=== PATIENT | female | born 1955 | race African-American/Black ===

== ENCOUNTER 2016-05-27 12:38 | Emergency (ER) | payer SELFPAY ==
[~2016-05-27] VITALS: Ht 157.5 cm; Wt 60.0 kg
[~2016-05-27 12:38] MED LIST: CIPR500T4 PO; IBUP600T26 PO
[2016-05-27 12:40] VITALS: BP 202/120; PULSE 100; RESP 20; TEMP 98; O2SAT 97
[2016-05-27 12:59] VITALS: BP 174/110; PULSE 85; RESP 16; TEMP 98.4; O2SAT 98
[2016-05-27 13:02] VITALS: BP 174/110; PULSE 90; RESP 16; O2SAT 98
[2016-05-27] MEDS ORDERED: SODIUM CHLORIDE 0.9% FLUSH 5 ML FLUSH IVF PRN (13:15)
[2016-05-27] MEDS ORDERED: SODIUM CHLORID 0.9% 500 ML INJ 500 ML IV ONE (13:15)
[2016-05-27] MEDS ORDERED: ASPIRIN 81 MG CHEW TAB PO ONE (13:15)
--- NOTE | 2016-05-27 13:35 | PD ---
HPI Chief Complaint: Chest Pain Time Seen by Provider: 12:56 Travel History International Travel<30 days: No Contact w/Intl Traveler<30days: No Traveled to known affect area: No History of Present Illness HPI This 60-year-old woman who presents to the emergency department complaining of chest and shoulder pain. She states that starting this morning started getting pain in her left chest, worse with deep breathing, mostly in the left shoulder. It does radiate to the right shoulder as well at times. She's had intermittent mild symptoms for the past week or so. No history of previous similar symptoms. Symptoms don't seem to be brought on by exertion, not associated with eating. She otherwise has been feeling generally well she is a history of DVT in the remote past associated with oral contraceptive use, no problems since then. No other complaints. History Past Medical History Medical History: Denies Significant Hx Influenza Vaccination: No PNEUMOCCOCAL Vaccine (Year): 2 Menopausal: Yes : 6 Social History Alcohol Use: Yes (OCCAS) Tobacco Use: No Allergies-Medications (Allergen,Severity, Reaction): Coded Allergies: Morphine (Verified Allergy, Severe, SWELLING, 05/27/16) Reported Meds & Prescriptions Reported Meds & Active Scripts Active No Active Prescriptions or Reported Medications Review of Systems Except as stated in HPI: all other systems reviewed are Neg Physical Exam Narrative GENERAL: Well-appearing 60-year-old woman, no acute distress. SKIN: Warm and dry. HEAD: Atraumatic. Normocephalic. CARDIOVASCULAR: Regular rate and rhythm. No murmur appreciated. RESPIRATORY: No accessory muscle use. Clear to auscultation. Breath sounds equal bilaterally. GASTROINTESTINAL: Abdomen soft, non-tender, nondistended. Hepatic and splenic margins not palpable. MUSCULOSKELETAL: No obvious deformities. No edema. NEUROLOGICAL: Awake and alert. No obvious cranial nerve deficits. Motor grossly within normal limits. Normal speech. PSYCHIATRIC: Appropriate mood and affect; insight and judgment normal. Data Data Last Documented VS Vital Signs Date Time Temp Pulse Resp B/P Pulse Ox O2 Delivery O2 Flow Rate FiO2 05/27/16 13:02 90 16 174/110 98 Room Air 05/27/16 12:59 98.4 Orders Electrocardiogram (05/27/16 ) B-Type Natriuretic Peptide (05/27/16 13:14) Complete Blood Count With Diff (05/27/16 13:14) Comprehensive Metabolic Panel (05/27/16 13:14) Magnesium (Mg) (05/27/16 13:14) Prothrombin Time / Inr (Pt) (05/27/16 13:14) Act Partial Throm Time (Ptt) (05/27/16 13:14) Troponin I (05/27/16 13:14) Lipase (05/27/16 13:14) Ecg Monitoring (05/27/16 13:14) Iv Access Insert/Monitor (05/27/16 13:14) Oximetry (05/27/16 13:14) Oxygen Administration (05/27/16 13:14) Aspirin Chew (Aspirin Chew) (05/27/16 13:15) Sodium Chloride 0.9% Flush (Ns Flush) (05/27/16 13:15) Sodium Chlorid 0.9% 500 Ml Inj (Ns 500 M (05/27/16 13:15) Chest, Pa & Lat (05/27/16 13:14) Labs Laboratory Tests Test 05/27/16 05/27/16 13:25 14:05 Sodium Level 140 MEQ/L Potassium Level 3.8 MEQ/L Chloride Level 106 MEQ/L Carbon Dioxide Level 26.0 MEQ/L Anion Gap 8 MEQ/L Blood Urea Nitrogen 10 MG/DL Creatinine 0.57 MG/DL Estimat Glomerular Filtration 131 ML/MIN Rate Random Glucose 92 MG/DL Calcium Level 10.1 MG/DL Magnesium Level 2.0 MG/DL Total Bilirubin 0.3 MG/DL Aspartate Amino Transf 19 U/L (AST/SGOT) Alanine Aminotransferase 24 U/L (ALT/SGPT) Alkaline Phosphatase 61 U/L Troponin I LESS THAN 0.02 NG/ML B-Type Natriuretic Peptide LESS THAN 2 PG/ML Total Protein 8.9 GM/DL Albumin 4.0 GM/DL Lipase 250 U/L White Blood Count 5.4 TH/MM3 Red Blood Count 3.91 MIL/MM3 Hemoglobin 12.6 GM/DL Hematocrit 35.3 % Mean Corpuscular Volume 90.3 FL Mean Corpuscular Hemoglobin 32.4 PG Mean Corpuscular Hemoglobin 35.9 % Concent Red Cell Distribution Width 12.5 % Platelet Count 230 TH/MM3 Mean Platelet Volume 7.1 FL Neutrophils (%) (Auto) 38.1 % Lymphocytes (%) (Auto) 50.8 % Monocytes (%) (Auto) 9.0 % Eosinophils (%) (Auto) 1.8 % Basophils (%) (Auto) 0.3 % Neutrophils # (Auto) 2.1 TH/MM3 Lymphocytes # (Auto) 2.7 TH/MM3 Monocytes # (Auto) 0.5 TH/MM3 Eosinophils # (Auto) 0.1 TH/MM3 Basophils # (Auto) 0.0 TH/MM3 CBC Comment DIFF FINAL Differential Comment MDM Medical Decision Making Medical Screen Exam Complete: Yes Emergency Medical Condition: Yes Interpretation(s) My review of EKG: Normal sinus rhythm, normal axis, no definite evidence of acute ischemia. LABS: CBC unremarkable. CMP is unremarkable. Troponin negative. BNP negative Lipase is normal Coags: Chest x-ray: negative Differential Diagnosis Chest wall pain, ACS, hepatobiliary disease, pneumothorax, dissection, other Narrative Course medical decision making INITIAL: This is a 60-year-old woman who presents to the emergency department with chest and left shoulder pain and tightness, intermittent, worsening over the past week, not clearly exertional. Looks otherwise well. We'll check labs. Remote history of DVT, I don't think this is a venous thromboembolism. Reassess. FINAL: Initial workups unremarkable. Very unusual story of intermittent stuttering symptoms, but not exertional at all. I don't think is consistent with PE or dissection. Symptoms are more from the shoulder to the arm on the left. Possibly some radiculopathy. Strength and reflexes are equal on both upper extremities. She has also elevated blood pressure but don't think that's related, and again I don't think she has dissection. She is good symmetric pulses in all 4 extremities. This point recommended trial blood pressure medicine, anti-inflammatory medicines, and outpatient follow-up. Diagnosis Primary Impression: Left arm pain Additional Impression: HTN (hypertension) Qualified Code: I10 - Essential hypertension Patient Instructions: General Instructions Additional Instructions: Take blood pressure medication as prescribed. Use Naprosyn as needed for arm pain. Follow-up with a primary physician in the next one to 2 weeks for repeat blood pressure evaluation, and for further evaluation. Return to the emergency department for any worsening chest pain, any numbness tingling or weakness, or any other new or worsening symptoms. Med/Other Pt SpecificInfo: Prescription(s) given Scripts Amlodipine 5 Mg Tab5 Mg PO DAILY #30 TAB Ref 0 Prov:Lc Chauhan MD 05/27/16 Naproxen (Naprosyn)250 Mg [id number] Mg PO BID #14 TAB Prov:Lc Chauhan MD 05/27/16 Disposition: 01 DISCHARGE HOME Condition: Stable Lc Chauhan MD May 27, 2016 13:35
--- NOTE | 2016-05-27 14:01 | RADRPT ---
EXAM DATE/TIME: 05/27/2016 13:41 [facility] COMPARISON: No previous studies available for comparison. INDICATIONS : Patient complains of chest pain and shortness of breath. MEDICAL HISTORY : None. SURGICAL HISTORY : None. ENCOUNTER: Initial ACUITY: 1 week PAIN SCORE: 8/10 LOCATION: chest FINDINGS: PA and lateral views of the chest demonstrate the lungs to be symmetrically aerated without evidence of mass, infiltrate or effusion. The cardiomediastinal contours are unremarkable. Osseous structure s are intact. CONCLUSION: No acute disease. Angel Johns MD FACR on May 27, 2016 at 13:59 Board Certified Radiologist. This report was verified electronically.
[2016-05-27 14:04] LABS: ALKALINE PHOSPHATASE 61 U/L (45-117); TOTAL BILIRUBIN ADULT 0.3 MG/DL (0.2-1.0)
[2016-05-27 14:09] LABS: ALT (GPT) 24 U/L (10-53); ANION GAP 8 MEQ/L (5-15); AST (GOT) 19 U/L (15-37); BLOOD UREA NITROGEN 10 MG/DL (7-18); CHLORIDE 106 MEQ/L (98-107); GLOMERULAR FILTRATION RATE 131 ML/MIN (>89); SODIUM (NA) 140 MEQ/L (136-145)
[2016-05-27 14:11] LABS: POTASSIUM 3.8 MEQ/L (3.5-5.1)
[2016-05-27 14:22] LABS: AUTOMATED NEUTROPHIL # 2.1 TH/MM3 (1.8-7.7); BASOPHIL % 0.3 % (0.0-2.0); EOSINOPHIL # 0.1 TH/MM3 (0-0.4); EOSINOPHIL % 1.8 % (0.0-4.0); HEMATOCRIT 35.3 % (35.0-46.0); HEMO FLAGS DIFF FINAL; LYMPH % 50.8 % (9.0-44.0); LYMPHOCYTE # 2.7 TH/MM3 (1.0-4.8); MEAN CELL VOLUME 90.3 FL (80.0-100.0); MEAN CORPUSCULAR HEMOGLOBIN 32.4 PG (27.0-34.0); MEAN CORPUSCULAR HGB CONC 35.9 % (32.0-36.0); NEUT % 38.1 % (16.0-70.0); PLATELET COUNT 230 TH/MM3 (150-450); RED BLOOD COUNT 3.91 MIL/MM3 (4.00-5.30); RED CELL DISTRIBUTION WIDTH 12.5 % (11.6-17.2); WHITE BLOOD COUNT 5.4 TH/MM3 (4.0-11.0)
[2016-05-27 14:29] LABS: APTT (PATIENT) 27.5 SEC (24.3-30.1); PROTHROMBIN TIME - PATIENT 11.4 SEC (9.8-11.6)
[2016-05-27] MEDS ORDERED: AMLO5TAB2 PO (14:37)
[2016-05-27] MEDS ORDERED: NAPR250T57 PO (14:37)
[2016-05-27 14:52] VITALS: BP 183/103; PULSE 90; RESP 16; O2SAT 96
--- NOTE | 2016-05-27 19:48 | EKG ---
Date Performed: 05/27/2016 Time Performed: 12:56:18 PTAGE: 60 years EKG: Sinus rhythm MODERATE T-WAVE ABNORMALITY, CONSIDER ANTERIOR ISCHEMIA ABNORMAL ECG PREVIOUS TRACING : 10/08/2011 10.01 Compared to the previous tracing, minimal T wave changes an teriorly DOCTOR: Jim Arias Interpretating Date/Time 05/27/2016 19:46:39
[2016-07-24] MEDS ORDERED: AMLO5TAB2 PO (15:52)
[2016-07-24] MEDS ORDERED: RANI150T PO (15:56)
== END 2016-05-27 15:09 | disposition home or self-care (01) ==
LOC: NEPC 12:38
DX: M79.602 Pain in left arm (principal); I10 Essential (primary) hypertension; R94.31 Abnormal electrocardiogram [ECG] [EKG]; Z86.718 Personal history of other venous thrombosis and embolism
CPT/HCPCS: 71020; 80053; 83690; 83735; 83880; 84484; 85025; 85610; 85730; 93005; 99285; J7040

== ENCOUNTER 2016-07-12 10:36 | Observation (INO) | payer SELFPAY ==
[~2016-07-12] VITALS: Ht 157.5 cm; Wt 60.5 kg
[2016-07-12] VITALS (9 sets, daily range): BP systolic 119–187; BP diastolic 77–107; PULSE 72–108; RESP 16–20; TEMP 97.4–98.3; O2SAT 96–98
[~2016-07-12 10:36] MED LIST changes: +AMLO5TAB2 PO; -CIPR500T4 PO; -IBUP600T26 PO; +NAPR250T57 PO
--- NOTE | 2016-07-12 11:16 | RADRPT ---
EXAM DATE/TIME: 07/12/2016 10:42 [facility] COMPARISON: No previous studies available for comparison. INDICATIONS : Chest pain on left side. MEDICAL HISTORY : None. SURGICAL HISTORY : None. ENCOUNTER: Initial ACUITY: 4 - 6 days PAIN SCORE: 9/10 LOCATION: Bilateral chest FINDINGS: A single view of the chest demonstrates the lungs to be symmetrically aerated without evidence of mas s, infiltrate or effusion. The cardiomediastinal contours are unremarkable. Osseous structures are intact. CONCLUSION: No acute disease. Angel Johns MD FACR on July 12, 2016 at 11:15 Board Certified Radiologist. This report was verified electronically.
[2016-07-12 11:17] LABS: BASOPHIL % 0.3 % (0.0-2.0); EOSINOPHIL # 0.1 TH/MM3 (0-0.4); EOSINOPHIL % 1.5 % (0.0-4.0); HEMATOCRIT 36.7 % (35.0-46.0); HEMO FLAGS DIFF FINAL; LYMPH % 53.2 % (9.0-44.0); LYMPHOCYTE # 2.9 TH/MM3 (1.0-4.8); MEAN CELL VOLUME 91.5 FL (80.0-100.0); MEAN CORPUSCULAR HEMOGLOBIN 31.6 PG (27.0-34.0); MEAN CORPUSCULAR HGB CONC 34.5 % (32.0-36.0); MONO % 7.2 % (0.0-8.0); NEUT % 37.8 % (16.0-70.0); PLATELET COUNT 235 TH/MM3 (150-450); RED BLOOD COUNT 4.01 MIL/MM3 (4.00-5.30); RED CELL DISTRIBUTION WIDTH 12.6 % (11.6-17.2); WHITE BLOOD COUNT 5.4 TH/MM3 (4.0-11.0)
[2016-07-12] MEDS ORDERED: ASPIRIN 325 MG TAB PO ONE (11:30)
[2016-07-12] MEDS: NITROGLYCERIN 0.4 MG SL 25 TABS/BTL SL SCH ×3 (11:30→11:40)
--- NOTE | 2016-07-12 11:30 | PD ---
HPI Chief Complaint: Chest Pain Time Seen by Provider: 11:30 Travel History International Travel<30 days: No Contact w/Intl Traveler<30days: No Traveled to known affect area: No History of Present Illness HPI 60-year-old female presents to the emergency department for evaluation of left- sided chest pain radiating down her left arm for 3 days. States that for the past 2 days the pain has been intermittent lasting for a few minutes. States that since this morning the pain has been constant. Denies any aggravating or alleviating factors. States that today she is having shortness of breath, nausea with 2 episodes of nonbloody emesis, and lightheadedness with diaphoresis associated with this chest pain. She also states that she is having pain in her upper and lower back. Denies any injury or trauma, has not done anything out of the ordinary recently, no heavy lifting. She denies any prior history of heart disease or VT. States that she has hypertension and high cholesterol, was recently placed on blood pressure medication but does not take anything for her cholesterol. She does not follow up as an outpatient with her PCP. She states that she has a remote history of DVT and PE in the past that was secondary to oral contraceptives, she is no longer taking any hormones. Denies smoking history. States she has a strong family history of cardiac disease with her mother and father both having heart attacks. No other complaints. PFSH Past Medical History Heart Rhythm Problems: No Cardiac Catheterization: No Cardiovascular Problems: Yes High Cholesterol: No Congestive Heart Failure: No Diabetes: No Diminished Hearing: No Deep Vein Thrombosis: Yes Hypertension: No Inguinal Hernia: Yes Respiratory: Yes (PE) Immunizations Current: Yes Myocardial Infarction: No Tetanus Vaccination: < 5 Years Influenza Vaccination: No PNEUMOCCOCAL Vaccine (Year): 2 Menopausal: Yes : 6 Past Surgical History Abdominal Surgery: Yes (RIGHT INGUINAL HERNIA X 4) Appendectomy: Yes Coronary Artery Bypass Graft: No Hysterectomy: Yes Social History Alcohol Use: Yes (OCCAS) Tobacco Use: No Substance Use: No Allergies-Medications (Allergen,Severity, Reaction): Coded Allergies: Morphine (Verified Allergy, Severe, SWELLING, 07/12/16) Reported Meds & Prescriptions Reported Meds & Active Scripts Active Amlodipine (Amlodipine Besylate) 5 Mg Tab 5 Mg PO DAILY Review of Systems Except as stated in HPI: all other systems reviewed are Neg Physical Exam Narrative GENERAL: Well-nourished and well-developed pleasant female patient in no acute distress. SKIN: Warm and dry. HEAD: Normocephalic and atraumatic. EYES: No injection, drainage, or hyphema noted. PERRLA. EOMI. ENT: No nasal drainage noted. Oropharynx is clear. NECK: Supple and the trachea is midline. CARDIOVASCULAR: Regular rate and rhythm. RESPIRATORY: Breath sounds are equal bilaterally with no accessory muscle use, wheezing, rhonchi, or crackles. GASTROINTESTINAL: Abdomen is soft, non-tender, and nondistended. MUSCULOSKELETAL: No obvious deformities, swelling, cyanosis, or ecchymosis is present throughout the upper and lower extremities. Patient has full range of motion without any signs of neurovascular compromise. BACK: Nontender without any obvious deformities, bony point tenderness, or crepitus noted throughout the thoracic and lumbar vertebrae. NEUROLOGICAL: Awake, alert, and oriented. Normal speech and gait. Cranial nerves are grossly intact. Data Data Last Documented VS Vital Signs Date Time Temp Pulse Resp B/P Pulse Ox O2 Delivery O2 Flow Rate FiO2 07/12/16 12:31 82 18 146/88 98 Room Air 07/12/16 10:39 98.2 Orders Electrocardiogram (07/12/16 10:41) Complete Blood Count With Diff (07/12/16 10:41) Basic Metabolic Panel (Bmp) (07/12/16 10:41) Ckmb (Isoenzyme) Profile (07/12/16 10:41) Troponin I (07/12/16 10:41) Chest, Single Ap (07/12/16 10:41) Iv Access Insert/Monitor (07/12/16 10:41) Ecg Monitoring (07/12/16 10:41) Oxygen Administration (07/12/16 10:41) Oximetry (07/12/16 10:41) D-Dimer (07/12/16 11:29) Prothrombin Time / Inr (Pt) (07/12/16 11:29) Act Partial Throm Time (Ptt) (07/12/16 11:29) Aspirin (Aspirin) (07/12/16 11:30) Nitroglycerin Sl (Nitrostat Sl) (07/12/16 11:30) Acetaminophen (Tylenol) (07/12/16 13:30) Admit Order (Ed Use Only) (07/12/16 13:23) Labs Laboratory Tests Test 07/12/16 07/12/16 10:55 12:20 White Blood Count 5.4 TH/MM3 Red Blood Count 4.01 MIL/MM3 Hemoglobin 12.7 GM/DL Hematocrit 36.7 % Mean Corpuscular Volume 91.5 FL Mean Corpuscular Hemoglobin 31.6 PG Mean Corpuscular Hemoglobin 34.5 % Concent Red Cell Distribution Width 12.6 % Platelet Count 235 TH/MM3 Mean Platelet Volume 7.1 FL Neutrophils (%) (Auto) 37.8 % Lymphocytes (%) (Auto) 53.2 % Monocytes (%) (Auto) 7.2 % Eosinophils (%) (Auto) 1.5 % Basophils (%) (Auto) 0.3 % Neutrophils # (Auto) 2.0 TH/MM3 Lymphocytes # (Auto) 2.9 TH/MM3 Monocytes # (Auto) 0.4 TH/MM3 Eosinophils # (Auto) 0.1 TH/MM3 Basophils # (Auto) 0.0 TH/MM3 CBC Comment DIFF FINAL Differential Comment Sodium Level 137 MEQ/L Potassium Level 3.9 MEQ/L Chloride Level 104 MEQ/L Carbon Dioxide Level 26.5 MEQ/L Anion Gap 7 MEQ/L Blood Urea Nitrogen 12 MG/DL Creatinine 0.70 MG/DL Estimat Glomerular Filtration 103 ML/MIN Rate Random Glucose 101 MG/DL Calcium Level 9.7 MG/DL Total Creatine Kinase 82 U/L Troponin I LESS THAN 0.02 NG/ML Prothrombin Time 10.1 SEC Prothromb Time International 0.9 RATIO Ratio Activated Partial 23.4 SEC Thromboplast Time D-Dimer Quantitative (PE/DVT) 0.21 MG/L [facility] Medical Decision Making Medical Screen Exam Complete: Yes Emergency Medical Condition: Yes Differential Diagnosis ACS versus PE versus pleurisy versus angina versus radiculopathy versus musculoskeletal pain Narrative Course 60-year-old female presents to the emergency department for evaluation of left- sided chest pain radiating to her left arm with upper and lower back pain as well. Patient is afebrile. She is initially tachycardic with a heart rate of 108 bpm and is initially hypertensive at 187/107. Her blood pressure has not come down 147/94. Otherwise vital signs are stable. Physical examination is essentially unremarkable. IV access is obtained, labs have been drawn and sent. Patient is administered nitroglycerin sublingually and aspirin. EKG shows sinus rhythm with no acute ST elevations or depressions. Chest x-ray is negative for any acute abnormalities. CBC is unremarkable. BMP is unremarkable. Troponin is less than 0.02. Coags are unremarkable. D-dimer is negative. Patient states that the nitroglycerin did not help her chest pain. She'll be admitted to chest pain center for repeat cardiac enzymes, EKGs and possible stress testing. Patient is agreeable with this plan. I discussed the case with my attending physician Dr. Chauhan who is aware of the patients history, physical examination findings, and treatment plan. Diagnosis Primary Impression: Chest pain radiating to arm Admitting Information Admitting Physician Requests: Observation Samantha Nuno Jul 12, 2016 11:30
[2016-07-12 11:44] LABS: ANION GAP 7 MEQ/L (5-15); BICARBONATE 26.5 MEQ/L (21.0-32.0); BLOOD UREA NITROGEN 12 MG/DL (7-18); CHLORIDE 104 MEQ/L (98-107); GLOMERULAR FILTRATION RATE 103 ML/MIN (>89); SODIUM (NA) 137 MEQ/L (136-145)
[2016-07-12 11:47] LABS: CREATINE KINASE 82 U/L (26-192); POTASSIUM 3.9 MEQ/L (3.5-5.1)
[2016-07-12 13:03] LABS: APTT (PATIENT) 23.4 SEC (24.3-30.1); INTERNATIONAL NORMALIZED RATIO 0.9 RATIO; PROTHROMBIN TIME - PATIENT 10.1 SEC (9.8-11.6)
[2016-07-12] MEDS ORDERED: ACETAMINOPHEN 500 MG CPLT PO PRN (13:30)
[2016-07-12] MEDS ORDERED: SODIUM CHLORIDE 0.9% FLUSH 5 ML FLUSH IVF PRN (13:30)
[2016-07-12] MEDS ORDERED: ONDANSETRON HCL 4 MG/2 ML VIAL IV PRN (13:30)
[2016-07-12] MEDS ORDERED: ALPRAZolam 0.25 MG TAB PO PRN (13:30)
[2016-07-12] MEDS ORDERED: ACETAMINOPHEN 500 MG CPLT PO ONE (13:30)
[2016-07-12] MEDS ORDERED: amLODIPine BESYLATE 5 MG TAB PO ONE (13:30)
--- NOTE | 2016-07-12 14:27 | HHI.HP ---
HPI Primary Care Physician No Primary Care Physician Chief Complaint Chest pain History of Present Illness This is a 60-year-old female that presents to the ED via private vehicle complaining of a left-sided chest pain that radiates down her left arm. This is bothering her for about a month. She seen for summing similar about a month ago and was told that it was a nerve pain. She states over last 3 days it is a become worse. Is coming more frequent. They last anywhere from a few seconds about 5 minutes. She describes as an ache. The most intense levels been a 9 out of 10. She's had times been short of breath and also diaphoretic a couple times. She was nauseous this morning with 2 episodes of nonbloody emesis. She believes she had a stress test several years ago. Upon review records she had a nonischemic Josiah protocol ETT in 2009. She denies recent illnesses. Denies fevers or chills. She states that last month she was diagnosed with hypertension was placed on amlodipine. She states that has been working. She took or masses morning but vomited soon afterwards. She does not have a local physician at this time. Review of Systems General: Patient denies fevers, chills recent, and recent travel HEENT: Patient denies headache, sore throat, difficulty swallowing. Cardiovascular: Has the chest discomfort as mentioned above. She was diaphoretic a couple times. Denies sensation of heart beating rapidly or irregularly. No syncope. Respiratory: Patient has been short of breath. Denies inspirational chest discomfort. Denies coughing wheezing or hemoptysis. GI: She was nauseous this morning and had tube episodes of nonbloody emesis. Patient denies diarrhea, abdominal pain, bloody stools. Musculoskeletal: Patient denies joint pain or edema. Denies calf pain or edema. Neurovascular: Patient denies numbness, tingling, weakness in extremities. Denies headache. Endocrine: Denies polyuria and polydipsia. Hematologic: Denies easy bruising. Skin: Denies rash or itching. Past Family Social History Allergies: Coded Allergies: Morphine (Verified Allergy, Severe, SWELLING, 07/12/16) Past Medical History Hypertension diagnosed recently. History of hyperlipidemia but states she has never taken medication for this. She had a DVT and a PE about 30 years ago which was related to oral contraceptive use. She states that she took Coumadin for 2 years. Denies known CAD and diabetes. Past Surgical History Right inguinal hernia repair, appendectomy, and hysterectomy. Reported Medications Reported Meds & Active Scripts Active Amlodipine (Amlodipine Besylate) 5 Mg Tab 5 Mg PO DAILY Active Ordered Medications Current Medications Medications (Trade) Dose Ordered Sig/Rm Route Start Time Stop Time Status Last Admin (NS Flush) 2 ml UNSCH PRN IVF 07/12/16 13:30 (NS Flush) 2 ml BID IVF 07/12/16 21:00 (Tylenol) 500 mg Q4H PRN PO 07/12/16 13:30 (Zofran Inj) 4 mg Q6H PRN IV 07/12/16 13:30 (Aspirin) 325 mg DAILY PO 07/13/16 09:00 (Xanax) 0.25 mg Q8H PRN PO 07/12/16 13:30 Family History Her father had an AZ at age 65. Her mother had her first AZ in her 60s. Social History Patient is a lifetime nonsmoker. She has on average 3-4 drinks twice a week. She denies illicit drugs. Physical Exam Vital Signs Vital Signs Date Time Temp Pulse Resp B/P Pulse Ox O2 Delivery O2 Flow Rate FiO2 07/12/16 14:05 97 21 07/12/16 12:31 82 18 146/88 98 Room Air 07/12/16 11:13 91 16 147/94 98 07/12/16 11:13 98 Room Air 07/12/16 11:13 98 07/12/16 10:39 98.2 108 18 187/107 97 Room Air Physical Exam GENERAL: This is a well-nourished, well-developed patient, in no apparent distress. Patient speaks in clear complete sentences. Patient is pleasant. HEENT: Head is atraumatic and normocephalic. Neck is supple without lymphadenopathy and trachea is midline. No JVD or carotid bruits. CARDIOVASCULAR: Grade 2 systolic murmur left sternal border. Regular rate and rhythm without gallops or rubs. RESPIRATORY: Clear to auscultation. Breath sounds equal bilaterally. No wheezes , rales, or rhonchi. Left chest wall is tender.. No use of accessory muscles. GASTROINTESTINAL: Abdomen is nontender, nondistended. Abdomen soft. No obvious pulsatile mass or bruit. No CVA tenderness. Strong femoral pulses bilaterally. Normal bowel sounds in all quadrants. MUSCULOSKELETAL: Patient is moving upper and lower extremities freely. No calf tenderness or edema, no Homans sign. Strong pulses in upper and lower extremities. NEUROLOGICAL: Patient is alert and oriented. Cranial nerves 2-12 are grossly intact. No focal deficits and speech is clear. SKIN: No rash and turgor is normal. Laboratory Laboratory Tests Test 07/12/16 07/12/16 10:55 12:20 White Blood Count 5.4 Red Blood Count 4.01 Hemoglobin 12.7 Hematocrit 36.7 Mean Corpuscular Volume 91.5 Mean Corpuscular Hemoglobin 31.6 Mean Corpuscular Hemoglobin 34.5 Concent Red Cell Distribution Width 12.6 Platelet Count 235 Mean Platelet Volume 7.1 Neutrophils (%) (Auto) 37.8 Lymphocytes (%) (Auto) 53.2 Monocytes (%) (Auto) 7.2 Eosinophils (%) (Auto) 1.5 Basophils (%) (Auto) 0.3 Neutrophils # (Auto) 2.0 Lymphocytes # (Auto) 2.9 Monocytes # (Auto) 0.4 Eosinophils # (Auto) 0.1 Basophils # (Auto) 0.0 CBC Comment DIFF FINAL Differential Comment Sodium Level 137 Potassium Level 3.9 Chloride Level 104 Carbon Dioxide Level 26.5 Anion Gap 7 Blood Urea Nitrogen 12 Creatinine 0.70 Estimat Glomerular Filtration 103 Rate Random Glucose 101 Calcium Level 9.7 Total Creatine Kinase 82 Troponin I LESS THAN 0.02 Prothrombin Time 10.1 Prothromb Time International 0.9 Ratio Activated Partial 23.4 Thromboplast Time D-Dimer Quantitative (PE/DVT) 0.21 Result Diagram: 07/12/16 1055 07/12/16 1055 Imaging Last 24 hours Impressions Chest X-Ray 07/12/16 1041 Signed Impressions: Service Date/Time: Tuesday, July 12, 2016 10:42 - CONCLUSION: No acute disease. Angel Johns MD FACR Course Initial EKG has sinus rhythm without significant ST segment depressions or elevations. There are inverted T waves in V1 and V2. Assessment and Plan Assessment and Plan * Chest pain: Patient will continue to have serial cardiac enzymes and EKGs for ruling out purposes. She will be seen by Dr. Harish Mercado of cardiology in the chest pain center. She likely will proceed with a stress test in the morning if she rules out. She will likely be discharged home if the stress test were to be nonischemic. * Hypertension: She will resume her Norvasc. We'll give her dose now she believes she had episodes of emesis almost immediately after taking the Norvasc this morning. * Hyperlipidemia: Patient states she's never taken medication for this. She'll need follow local physician for this. Patient is stable this time. We are trying to get the patient established with patient assistance so that she may follow-up with Dr. Ace at the [facility]. Joel Shankar Jul 12, 2016 14:27
[2016-07-12 15:53] LABS: CREATINE KINASE 72 U/L (26-192)
[2016-07-12 17:31] LABS: CREATINE KINASE 59 U/L (26-192)
[2016-07-12] MEDS: SODIUM CHLORIDE 0.9% FLUSH 5 ML FLUSH IVF SCH (20:04)
--- NOTE | 2016-07-12 21:42 | EKG ---
Date Performed: 07/12/2016 Time Performed: 10:46:29 PTAGE: 60 years EKG: Sinus rhythm POSSIBLE LEFT ATRIAL ENLARGEMENT NONSPECIFIC T-WAVE ABNORMALITY BORDERLINE ECG PREVIOUS TRACING : 05/27/2016 12.56 Compared to prior tracing no significant change DOCTOR: Melodie Ramos Interpretating Date/Time 07/12/2016 21:40:27
--- NOTE | 2016-07-12 22:59 | EKG ---
Date Performed: 07/12/2016 Time Performed: 15:13:31 PTAGE: 60 years EKG: Sinus rhythm NONSPECIFIC T-WAVE ABNORMALITY BORDERLINE ECG PREVIOUS TRACING : 07/12/2016 10.46 Compared to prior tracing no significant change DOCTOR: Jim Arias Interpretating Date/Time 07/12/2016 22:57:32
[2016-07-13 00:06] VITALS: PULSE 73
[2016-07-13 04:00] VITALS: PULSE 83
[2016-07-13 04:05] VITALS: BP 135/83; PULSE 74; RESP 20; TEMP 98; O2SAT 98
[2016-07-13 07:51] VITALS: PULSE 88
[2016-07-13 08:00] VITALS: BP 135/78; PULSE 80; RESP 20; TEMP 96.8; O2SAT 97
[2016-07-13] MEDS ORDERED: amLODIPine BESYLATE 5 MG TAB PO SCH (09:00)
[2016-07-13] MEDS ORDERED: ASPIRIN 325 MG TAB PO SCH (09:00)
[2016-07-13 09:32] VITALS: O2SAT 97
[2016-07-13] MEDS ORDERED: REGADENOSON INJ 0.4 MG/5 ML SYR ONE (09:46)
[2016-07-13] MEDS: SODIUM CHLORIDE 0.9% FLUSH 5 ML FLUSH IVF SCH (11:05)
--- NOTE | 2016-07-13 11:14 | RADRPT ---
EXAM DATE/TIME: 07/13/2016 09:08 [place] COMPARISON: No previous studies available for comparison. INDICATIONS : Left chest pain radiating to left arm with dyspnea, dizziness, diaphoresis, nausea and vomiting. Sugar na. DOSE: 25.7 mCi Tc99m Myoview at stress. 8.1 mCi Tc99m Myoview at rest. 0.4 mg Lexiscan STRESS SYMPTOMS: Shortness of breath midsternal chest pain. EJECTION FRACTION: > 70% MEDICAL HISTORY : Hypertension. Hernia, inguinal. SURGICAL HISTORY : Appendectomy. Hysterectomy. ENCOUNTER: Initial ACUITY: 3 days PAIN SCALE: 7/10 LOCATION: Left chest TECHNIQUE: The patient underwent pharmacologic stress with infusion of prescribed dose. Continuous ECG tracing was monitored during stress. Gated SPECT imaging was performed after stress and conventional SPECT i maging was performed at rest. The examination was performed on a SPECT/CT scanner, both attenuation and non-corrected datasets were reviewed. FINDINGS: DISTRIBUTION: The maximum perfused segment at stress is in the lateral wall. PERFUSION STUDY: The pattern of perfusion at stress is within normal limits with regional variations less than 30%. N o evidence of redistribution. The summed stress score is 5. There is some diaphragmatic attenuation affecting the inferior azul on the non-attenuation corrected data set.. GATED STUDY: There is intact wall motion and thickening without hypokinetic or dyskinetic segments. CONCLUSION: 1. No evidence of stress-induced ischemia. 2. Intact wall motion with greater than 70% ejection fraction. RISK CATEGORY: Low (<1% Annual Mortality Rate) Mariano Fine MD on July 13, 2016 at 11:09 Board Certified Radiologist. This report was verified electronically.
--- NOTE | 2016-07-13 11:19 | HHI.DCPOC ---
Discharge Care Plan Diagnosis: (1) Chest pain (2) Hypertension Goals to Promote Your Health * To prevent worsening of your condition and complications * To maintain your health at the optimal level Directions to Meet Your Goals Take your medications as prescribed Follow your dietary instruction Follow activity as directed Keep your appointments as scheduled Take your immunizations and boosters as scheduled If your symptoms worsen call your PCP, if no PCP go to Urgent Care Center or Emergency Room Smoking is Dangerous to Your Health. Avoid second hand smoke Call the 24-hour hour crisis hotline for domestic abuse at Joel Shankar Jul 13, 2016 11:19
--- NOTE | 2016-07-13 19:37 | EKG ---
Date Performed: 07/12/2016 Time Performed: 17:01:46 PTAGE: 60 years EKG: ECTOPIC ATRIAL RHYTHM POSSIBLE LEFT ATRIAL ENLARGEMENT BORDERLINE LEFT AXIS DEVIATION MODER ATE T-WAVE ABNORMALITY, CONSIDER ANTERIOR ISCHEMIA ABNORMAL ECG Since PREVIOUS TRACING , no significant change noted PREVIOUS TRACIN07/12/2016 15.13 DOCTOR: Ophelia Hernandez Interpretating Date/Time 07/14/2016 07:10:44
--- NOTE | 2016-07-13 19:44 | TR ---
Date Performed: 07/13/2016 Time Performed: 09:44:02 DOCTOR: Ophelia Hernandez DRUG LIST: CLINICAL HISTORY: REASON FOR TEST: Angina REASON FOR ENDING: OBSERVATION: CONCLUSION: Lexiscan stress test was performed under standard four minute protocol. Radionuclid e was injected one minute prior to ending the test. No electrocardiographic abormalities were present to suggest ischemia. Nuclear imaging and interpretation are pending. COMMENTS:
[2016-07-24] MEDS ORDERED: AMLO5TAB2 PO (15:52)
[2016-07-24] MEDS ORDERED: RANI150T PO (15:56)
== END 2016-07-13 12:59 | disposition home or self-care (01) ==
LOC: NEPC 10:36 → NEDA 13:24 → NEPFCDU 15:20
PROVIDERS: ADMIT Internal Medicine Cardiovascular Disease; ATTEND Internal Medicine Cardiovascular Disease
DX: R07.89 Other chest pain (principal); I10 Essential (primary) hypertension; R11.2 Nausea with vomiting, unspecified; R06.02 Shortness of breath; R61 Generalized hyperhidrosis; R42 Dizziness and giddiness; Z86.711 Personal history of pulmonary embolism; Z86.718 Personal history of other venous thrombosis and embolism; Z82.49 Family history of ischemic heart disease and other diseases of the circulatory system
CPT/HCPCS: 71010; 78452; 80048; 82550; 84484; 85025; 85379; 85610; 85730; 93005; 93017; 99285; A9502; G0378; J2785

== ENCOUNTER 2018-04-25 03:33 | Observation (INO) ==
[2018-04-25 04:13] LABS: Baso % (Auto) 0.3 % (0.0-2.0); Eos # (Auto) 0.2 th/mm3 (0.0-0.4); Eos % (Auto) 2.6 % (0.0-4.0); Hematocrit 39.5 % (35.0-46.0); Hemoglobin 13.4 gm/dL (11.6-15.3); Lymph # (Auto) 3.5 th/mm3 (1.0-4.8); Lymph % (Auto) 57.8 % (9.0-44.0); Mean Corpuscular HGB Conc 33.9 % (32.0-36.0); Mean Corpuscular Volume 94.5 fL (80.0-100.0); Mean Platelet Volume 6.9 fL (7.0-11.0); Mono # (Auto) 0.5 th/mm3 (0.0-0.9); Mono % (Auto) 8.6 % (0.0-8.0); Neut # (Auto) 1.8 th/mm3 (1.8-7.7); Neut % (Auto) 30.7 % (16.0-70.0); Platelet Count 233 th/mm3 (150-450); Red Blood Count 4.18 mil/mm3 (4.00-5.30); Red Cell Distribution Width 12.4 % (11.6-17.2)
--- NOTE | 2018-04-25 04:21 | ED ---
HPI General Chief complaint: Hypertension Stated complaint: Medical Time Seen by Provider: 04/25/18 03:43 Source: patient Mode of arrival: ambulatory Limitations: no limitations History of Present Illness HPI narrative: 62-year-old female with history of hypertension, hyperlipidemia, DVT/PE several years ago while on control, here for evaluation of chest pain, headache, and elevated blood pressure. Patient reports that her symptoms started about 2 hours prior to arrival, and woke her from sleep. She complains of substernal chest pain described as a pressure that is constant, radiates to her left arm, moderate, no modifying factors. She also complains of a frontal headache that she describes as pressure-like, gradual in onset, currently 10 out of 10. She also notices a sharp pain from her left elbow to her left hand which is moderate, constant. She denies trauma. No paresthesias or motor deficits. No known history of cardiac disease. There is family history of cardiac disease in her mother and father. States that at the onset of her symptoms she checks her blood pressure and noticed it to be 200s over 100s. She has been compliant with her amlodipine. Related Data Home Medications Medication Instructions Recorded Confirmed amlodipine 5 mg PO DAILY 04/25/18 04/25/18 clonidine HCl 04/25/18 Allergies Allergy/AdvReac Type Severity Reaction Status Date / Time morphine Allergy Severe SWELLING Verified 04/25/18 03:38 Review of Systems ROS: all other systems reviewed are negative [facility] Medical History Medical History DVT (deep venous thrombosis) (Acute) HTN (hypertension) (Acute) Pulmonary embolism (Acute) Surgical History Surgical History H/O hernia repair (Acute) Hx of appendectomy (Acute) Social History Social History Substance History: No History of Abuse Second Hand Smoke Exposure: No Smoking Status: Never smoker How Often Do You Have a Drink Containing Alcohol: Monthly or less Recent Travel in [facility] within the Last 8 Weeks: No Recent Out of Country Travel within the Last 8 Weeks: No Immunization History Tetanus Immunization: <5 Years Exam Narrative Exam Narrative: GENERAL: Well-developed, well-nourished, sitting comfortably on chair, no apparent distress. SKIN: Focused skin assessment warm/dry. HEAD: Atraumatic. Normocephalic. EYES: Pupils equal and round. No scleral icterus. No injection or drainage. ENT: No nasal bleeding or discharge. Mucous membranes pink and moist. NECK: Trachea midline. No JVD. CARDIOVASCULAR: Regular rate and rhythm. Distal pulses brisk and equal bilaterally. RESPIRATORY: No accessory muscle use. Clear to auscultation. Breath sounds equal bilaterally. GASTROINTESTINAL: Abdomen soft, non-tender, nondistended. MUSCULOSKELETAL: No obvious deformities. No clubbing. No cyanosis. No edema. NEUROLOGICAL: Awake and alert. No obvious cranial nerve deficits. Motor grossly within normal limits. Normal speech. No focal deficits. PSYCHIATRIC: Appropriate mood and affect; insight and judgment normal. Course Initial Documented Vital Signs Temperature 97.5 F L 04/25/18 03:35 Pulse Rate 105 H 04/25/18 03:35 Respiratory Rate 20 04/25/18 03:35 Blood Pressure 186/89 H 04/25/18 03:35 Pulse Oximetry 99 04/25/18 03:35 Last Documented Vital Signs Temperature 97.5 F L 04/25/18 03:35 Pulse Rate 94 H 04/25/18 05:55 Respiratory Rate 14 04/25/18 05:55 Blood Pressure 129/88 04/25/18 05:55 Pulse Oximetry 98 04/25/18 05:55 Medical Decision Making MDM Narrative Medical decision making narrative: Vital signs reviewed. The patient presented with a blood pressure of 186/89. This improved to 129/88 after the patient received sublingual nitroglycerin. CBC is essentially unremarkable. CMP is essentially unremarkable. Cardiac enzymes are negative. Chest x-ray shows no acute disease. CT head shows no acute intracranial abnormality. Patient was given Reglan and Tylenol with resolution of her headache. She was also given a full aspirin and 1 sublingual nitroglycerin and on reassessment at 5:50 AM her blood pressure had improved, and she is sleeping comfortably. She tells me that she feels significantly better, no longer has chest pain or headache. The patient's chart was reviewed and shows that she was admitted to the chest pain center in June of last year and had a normal exercise stress test. Her EKG today is similar in appearance to July 12, 2016 with T wave inversions in V1 through V3. She does have several cardiac risk factors, and because of this will be admitted to the chest pain center for further cardiac evaluation. She is amenable to this plan. Medical Screen Exam Complete: Yes Emergency Medical Condition: Yes Differential Diagnosis Differential Diagnosis: Hypertensive crisis, hypertensive urgency, ACS, pneumothorax, pericarditis, PE, pneumonia, dissection, tension headache, cluster headache, migraine headache, SAH/meningitis/encephalitis less likely Lab Data Result diagrams: 04/25/18 04:00 04/25/18 05:00 Lab Results 04/25/18 04/25/18 04/25/18 Range/Units 04:00 04:00 05:00 WBC 6.0 (4.0-11.0) th/mm3 RBC 4.18 (4.00-5.30) mil/mm3 Hgb 13.4 (11.6-15.3) gm/dL Hct 39.5 (35.0-46.0) % MCV 94.5 (80.0-100.0) fL MCH 32.0 (27.0-34.0) pg MCHC 33.9 (32.0-36.0) % RDW 12.4 (11.6-17.2) % Plt Count 233 (150-450) th/mm3 MPV 6.9 L (7.0-11.0) fL Neut % (Auto) 30.7 (16.0-70.0) % Lymph % (Auto) 57.8 H (9.0-44.0) % [place] % (Auto) 8.6 H (0.0-8.0) % Eos % (Auto) 2.6 (0.0-4.0) % Baso % (Auto) 0.3 (0.0-2.0) % Neut # (Auto) 1.8 (1.8-7.7) th/mm3 Lymph # (Auto) 3.5 (1.0-4.8) th/mm3 [place] # (Auto) 0.5 (0.0-0.9) th/mm3 Eos # (Auto) 0.2 (0.0-0.4) th/mm3 Baso # (Auto) 0.0 (0.0-0.2) th/mm3 WBC Differential . Differential Comment Auto diff final PT 10.0 (9.8-11.6) sec INR 1.0 Ratio APTT 26.3 (23.4-31.7) sec Sodium 138 (136-145) meq/L Potassium 3.8 (3.5-5.1) meq/L Chloride 108 H (98-107) meq/L Carbon Dioxide 22.3 (21.0-32.0) meq/L Anion Gap 8 (5-15) meq/L BUN 11 (7-18) mg/dL Creatinine 0.56 (0.50-1.00) mg/dL Estimated GFR Greater than 89 (>89) mL/min Random Glucose 123 H (74-106) mg/dL Calcium 9.1 (8.5-10.1) mg/dL Total Bilirubin 0.3 (0.2-1.0) mg/dL AST 26 (15-37) U/L ALT 31 (10-53) U/L Alkaline Phosphatase 63 (45-117) U/L Total Creatine Kinase 80 (26-192) U/L Troponin I Less than 0.02 L (0.02-0.05) ng/mL Total Protein 8.2 (6.4-8.2) g/dL Albumin 3.6 (3.4-5.0) g/dL Imaging Data Radiologist's impression: Chest X-Ray 04/25/18 03:50 CONCLUSION: Negative examination. Head CT 04/25/18 03:50 CONCLUSION: 1. Negative CT Head non contrast. . ECG Data Attestation: I personally reviewed and interpreted this ECG as follows: (Sinus, rate 85, normal axis, normal intervals, T wave inversions in V1 through V3 which were seen on EKG on 07/12/16, no acute ischemic abnormalities.) Discharge Plan Physicians Team ED Provider: Wing Oliver Primary Care Provider: UNKNOWN, Rxs /Orders / Referrals /Forms Prescriptions: No Action clonidine HCl 0.1 mg Tablet 0.1 mg PO PRN PRN (Reason: Hypertension) RF: 0 amlodipine 5 mg Tablet 5 mg PO DAILY RF: 0 Status ED Status: With Doctor
[2018-04-25 04:25] LABS: Activated Partial Thrombo Time 26.3 sec (23.4-31.7)
--- NOTE | 2018-04-25 04:29 | XR ---
EXAM DATE: 04/25/2018 4:09 AM EST AGE/SEX: 62 years / Female INDICATIONS: Chest pressure, increased blood pressure starting today CLINICAL DATA: This is the patient's initial encounter. Patient reports that signs and symptoms have been present for 1 day and indicates a pain score of 5/10. MEDICAL/SURGICAL HISTORY: None. None. COMPARISON: [facility] [place], CHEST SINGLE AP, 07/12/2016. . FINDINGS: A single AP view of the chest demonstrates the lungs to be symmetrically aerated without evidence of mass, infiltrate or effusion. The cardiomediastinal contours are unremarkable. Osseous structures a re intact. CONCLUSION: Negative examination. Electronically signed by: Mariano Caon MD 04/25/2018 4:27 AM EST
[2018-04-25] MEDS ORDERED: Acetaminophen 325 MG Tablet PO ONE (04:33)
--- NOTE | 2018-04-25 04:38 | CT ---
EXAM DATE: 04/25/2018 4:31 AM EST AGE/SEX: 62 years / Female INDICATIONS: Cephalgia. CLINICAL DATA: This is the patient's initial encounter. Patient reports that signs and symptoms have been present for 1 day and indicates a pain score of 10/10. MEDICAL/SURGICAL HISTORY: Hypertension. Deep venous thrombosis. Pulmonary Embolism. Appendectomy . Hernia Repair. RADIATION DOSE: 56.35 CTDI (mGy) COMPARISON: [facility], CT BRAIN W/O CONTRAST, 10/08/2011. . TECHNIQUE: CT of the head without contrast. Using automated exposure control and adjustment of the mA and/or kV according to patient size, radiation dose was kept as low as reasonably achievable to ob tain optimal diagnostic quality images. DICOM format image data is available electronically for revi ew and comparison. FINDINGS: Cerebrum: The ventricles are normal for age. No evidence of midline shift, mass lesion, hemorrhage or acute infarction. No extraaxial fluid collections are seen. Posterior Fossa: The cerebellum and brainstem are intact. The 4th ventricle is midline. The cerebe llopontine angle is unremarkable. Extracranial: The visualized portion of the orbits is intact. Skull: The calvaria is intact. No evidence of skull fracture. CONCLUSION: 1. Negative CT Head non contrast. . Electronically signed by: Mariano Cano MD 04/25/2018 4:36 AM EST
[2018-04-25 05:45] LABS: Anion Gap 8 meq/L (5-15)
[2018-04-25 05:51] LABS: Alanine Aminotransferase 31 U/L (10-53); Albumin 3.6 g/dL (3.4-5.0); Alkaline Phosphatase 63 U/L (45-117); Aspartate Aminotransferase 26 U/L (15-37); Blood Urea Nitrogen 11 mg/dL (7-18); Calcium 9.1 mg/dL (8.5-10.1); Carbon Dioxide 22.3 meq/L (21.0-32.0); Chloride 108 meq/L (98-107); Creatine Kinase 80 U/L (26-192); Glomerular Filtration Rate Greater Than 89 mL/min (>89); Glucose,Random 123 mg/dL (74-106); Potassium 3.8 meq/L (3.5-5.1); Sodium 138 meq/L (136-145); Total Protein 8.2 g/dL (6.4-8.2)
[2018-04-25] MEDS ORDERED: Acetaminophen 500 MG Tablet PO PRN (07:45)
[2018-04-25 07:51] LABS: Creatine Kinase 73 U/L (26-192)
--- NOTE | 2018-04-25 09:27 | P.HPCA ---
History of Present Illness Primary Care Physician: No Primary Care Physician Chief Complaint: Chest pain and dizziness History of Present Illness: 62 year old female with history of hypertension presents the emergency room for further evaluation of dizziness, chest pressure, and concern over elevated blood pressure. Onset Sunday. Location substernal. Characterized as pressure. Intermittent radiation from left elbow to left wrist. Described left shoulder to left elbow as sharp, shooting pain. No associated symptoms of nausea, vomiting, or diaphoresis. Associated symptoms included dizziness, dyspnea, and fatigue. Intermittent wheezing as well. Reports blurred vision Sunday while driving, without associated headache. No recent illness, fever, cough, injury, or sputum production. Endorses similar pain in the past approximately 2 years ago and completed Lexiscan which was nonischemic. Past cardiac testing 07/13/16 Lexiscan-no evidence of stress-induced ischemia. Intact wall motion. Estimated ejection fraction 70%. Social history Known hypertension. No known hyperlipidemia, diabetes, coronary artery disease. Lifelong non-smoker. Occasional alcohol use. No recreational drug use. Family history Noncontributory for early onset cardiovascular disease, although states father had some type of heart issue in his 40s but does not recall father having an TN or being diagnosed with coronary artery disease. Two sisters have coronary artery disease requiring stents in their 60s. - Diagnosis (1) Chest pain of uncertain etiology (2) Hypertension (3) Passing blood (urine) Review of Systems All other systems reviewed negative except as stated in HPI Genitourinary: Reports blood in urine (Chronic, followed with local special events manager states she is "masses on kidneys.) [facility] - History History Provided By: Patient - Medical History Medical History: Medical History (Last Updated 04/25/18 @ 12:26 by PAULINE Harman) DVT (deep venous thrombosis) HTN (hypertension) Mass of kidney of unknown nature Pulmonary embolism - Surgical History Surgical History: Surgical History (Last Reviewed 04/25/18 @ 12:26 by PAULINE Harman) H/O hernia repair Hx of appendectomy - Tobacco History Second Hand Smoke Exposure: No Tobacco Use In Past 30 Days: No Smoking Status: Never smoker - Alcohol History How Often Do You Have a Drink Containing Alcohol: Monthly or less - Substance Use History Substance History: No History of Abuse - Travel History Recent Travel in the [place] Within the Last 8 Weeks: No Recent Travel Out of the Country Within the Last 8 Weeks: No - Immunization History Tetanus Immunization: <5 Years Medications and Allergies Active Medications: Active Medications Acetaminophen (Tylenol) 500 mg PO Q4H PRN PRN Reason: HEADACHE Nitroglycerin (Nitrostat Sl) 0.4 mg SL Q5M PRN PRN Reason: CHEST PAIN Ondansetron HCl (Zofran Inj) 4 mg IV.PUSH Q6H PRN PRN Reason: NAUSEA Sodium Chloride (Ns Flush) 2 ml IV.FLUSH UNSCH PRN PRN Reason: FLUSH AFTER USING IV ACCESS Sodium Chloride (Ns Flush) 2 ml IV.FLUSH BID AARTI Sodium Chloride (Ns Flush) 2 ml IV.FLUSH PRN PRN PRN Reason: FLUSH AFTER USING IV ACCESS Allergies Allergy/AdvReac Type Severity Reaction Status Date / Time morphine Allergy Severe SWELLING Verified 04/25/18 03:38 Home Medications Medication Instructions Recorded Confirmed Type amlodipine 5 mg PO DAILY 04/25/18 04/25/18 History clonidine HCl 0.1 mg PO PRN PRN 04/25/18 04/25/18 History Exam Vital signs: Vital Signs 04/25/18 03:35 04/25/18 04:05 04/25/18 04:41 Temperature 97.5 F L Pulse Rate 105 H 80 87 Respiratory Rate 20 18 Blood Pressure 186/89 H 157/90 H Pulse Oximetry 99 100 98 04/25/18 05:55 04/25/18 08:00 Temperature 98.2 F Pulse Rate 94 H 78 Respiratory Rate 14 16 Blood Pressure 129/88 144/87 H Pulse Oximetry 98 99 Intake & Output 04/24/18 04/25/18 04/25/18 18:59 06:59 18:59 Weight 58.967 kg Narrative: GENERAL: Alert WN, WD, NAD, pleasant, -Hungarian, thin female HEAD: NC, AT EYES: Sclera clear, conjunctiva without injection, pupils equal and round ENT: Mucous membranes pink and moist NECK: Supple, no masses, trachea midline CV: RRR, 2/6 systolic murmur, no rub or gallop, no JVD, S1-S2. Point tenderness with palpation of left anterior chest. RESP: Diminished lungs throughout bilateral, no crackles, wheeze, rhonchi, symmetrical chest rise, nonlabored, able to speak in full sentences ABD: Soft, NT, ND, no masses, positive bowel tones BACK: No scoliosis EXT: Pulses +2x4, no dependent edema MS: Normal tone x4 extremities, nontender, no obvious deformities, full range of motion NEURO: Motor strength 5/5 PSYCH: A+O x3, pleasant affect, appropriate speech, mood, insight and judgment SKIN: Normal turgor, normal texture, no lesions, no rashes, brisk cap refill Results 04/25/18 04:00 04/25/18 05:00 Cardiac Enzymes 04/25/18 04/25/18 Range/Units 05:00 06:20 AST 26 (15-37) U/L Troponin I Less than 0.02 L Less than 0.02 L (0.02-0.05) ng/mL Coagulation 04/25/18 Range/Units 04:00 PT 10.0 (9.8-11.6) sec APTT 26.3 (23.4-31.7) sec CBC 04/25/18 Range/Units 04:00 WBC 6.0 (4.0-11.0) th/mm3 RBC 4.18 (4.00-5.30) mil/mm3 Hgb 13.4 (11.6-15.3) gm/dL Hct 39.5 (35.0-46.0) % Plt Count 233 (150-450) th/mm3 Neut # (Auto) 1.8 (1.8-7.7) th/mm3 Lymph # (Auto) 3.5 (1.0-4.8) th/mm3 [place] # (Auto) 0.5 (0.0-0.9) th/mm3 Eos # (Auto) 0.2 (0.0-0.4) th/mm3 Baso # (Auto) 0.0 (0.0-0.2) th/mm3 Comprehensive Metabolic Panel 04/25/18 Range/Units 05:00 Sodium 138 (136-145) meq/L Potassium 3.8 (3.5-5.1) meq/L Chloride 108 H (98-107) meq/L Carbon Dioxide 22.3 (21.0-32.0) meq/L BUN 11 (7-18) mg/dL Creatinine 0.56 (0.50-1.00) mg/dL Calcium 9.1 (8.5-10.1) mg/dL AST 26 (15-37) U/L ALT 31 (10-53) U/L Alkaline Phosphatase 63 (45-117) U/L Total Protein 8.2 (6.4-8.2) g/dL Albumin 3.6 (3.4-5.0) g/dL Intake and Output 04/24/18 04/25/18 04/25/18 22:59 06:59 14:59 Other: Weight 58.967 kg - Imaging and Cardiology Imaging: Impressions Chest X-Ray 04/25/18 03:50 CONCLUSION: Negative examination. Head CT 04/25/18 03:50 CONCLUSION: 1. Negative CT Head non contrast. . EKG interpretations - EKG EKG results cardiology: sinus rhythm (Nonspecific ST-T segment changes, T wave inversion lead V3) Caprini VTE Risk Assessment Caprini VTE Risk Assessment: Moderate/High Risk (score >= 2) Caprini Risk Assessment Model: Point Value = 1 Point Value = 2 Point Value = 3 Point Value = 5 Age 41-60 Minor surgery BMI > 25 kg/m2 Swollen legs Varicose veins or History of unexplained or recurrent spontaneous Oral contraceptives or hormone replacement Sepsis (< 1 month) Serious lung disease, including pneumonia (< 1 month) Abnormal pulmonary function Acute myocardial infarction Congestive heart failure (< 1 month) History of inflammatory bowel disease Medical patient at bed rest Age 61-74 Arthroscopic surgery Major open surgery (> 45 min) Laparoscopic surgery (> 45 min) Malignancy Confined to bed (> 72 hours) Immobilizing plaster cast Central venous access Age >= 75 History of VTE Family history of VTE Factor V Leiden Prothrombin [id number] Lupus anticoagulant Anticardiolipin antibodies Elevated serum homocysteine Heparin-induced thrombocytopenia Other congenital or acquired thrombophilia Stroke (< 1 month) Elective arthroplasty Hip, pelvis, or leg fracture Acute spinal cord injury (< 1 month) Prophylaxis Regimen: Total Risk Factor Score Risk Level Prophylaxis Regimen 0-1 Low Early ambulation 2 Moderate Order ONE of the following: *Sequential Compression Device (SCD) *Heparin 5000 units SQ BID 3-4 Higher Order ONE of the following medications: *Heparin 5000 units SQ TID *Enoxaparin/Lovenox 40 mg SQ daily (WT < 150 kg, CrCl > 30 mL/min) *Enoxaparin/Lovenox 30 mg SQ daily (WT < 150 kg, CrCl > 10-29 mL/min) *Enoxaparin/Lovenox 30 mg SQ BID (WT < 150 kg, CrCl > 30 mL/min) AND/OR *Sequential Compression Device (SCD) 5 or more Highest Order ONE of the following medications: *Heparin 5000 units SQ TID (Preferred with Epidurals) *Enoxaparin/Lovenox 40 mg SQ daily (WT < 150 kg, CrCl > 30 mL/min) *Enoxaparin/Lovenox 30 mg SQ daily (WT < 150 kg, CrCl > 10-29 mL/min) *Enoxaparin/Lovenox 30 mg SQ BID (WT < 150 kg, CrCl > 30 mL/min) AND *Sequential Compression Device (SCD) Assessment and Plan - Assessment (1) Chest pain of uncertain etiology Code(s): R07.89 - Other chest pain Status: Acute Plan: Admitted chest pain center. ACS rule out 3 sets of EKGs and cardiac enzymes. Will be seen and evaluated by Dr. Zohaib Castillo. Discussed likely will cardiac testing related to risk factors. Patient somewhat reluctant to walk on treadmill. Further recommendation to follow after evaluation by sec reporting consultant. (2) Hypertension Code(s): I10 - Essential (primary) hypertension Status: Acute Plan: Continue amlodipine. (3) Passing blood (urine) Code(s): R31.9 - Hematuria, unspecified Status: Chronic Plan: This is a chronic issue. Strongly encouraged her to reestablish with a local primary care provider. Discussed [facility] as a possible resource for her. Also discussed contacting past special events manager to determine if office would agree to see her on a free fro service basis. (2) Hypertension Qualifiers: Hypertension type: unspecified Qualified Code(s): I10 - Essential (primary) hypertension (3) Passing blood (urine) Qualifiers: Hematuria type: unspecified type Qualified Code(s): R31.9 - Hematuria, unspecified
[2018-04-25] MEDS ORDERED: amLODIPine 5 MG Tablet PO SCH (10:00)
[2018-04-25 10:40] LABS: Creatine Kinase 82 U/L (26-192)
--- NOTE | 2018-04-25 11:01 | P.PNCA ---
Subjective Interval history: This 62-year-old pleasant black lady was seen and evaluated by the nurse practitioner and presented. She was then seen and evaluated personally. Starks agreement with the nurse practitioner's assessment and after further discussion the decision was made since she has already ruled out by chest pain center protocol to further test her with a repeat Lexiscan. In view of her negative study a little over a year ago it is anticipated that this will be unremarkable but still warranted. If it is negative she will be discharged with recommendation that she follow-up at [facility] and also the [facility] to seek further help with management of her hypertension and evaluation the blood in her urine. Medications and Allergies Active Medications: Active Medications Acetaminophen (Tylenol) 500 mg PO Q4H PRN PRN Reason: HEADACHE Amlodipine Besylate (Norvasc) 5 mg PO DAILY [facility] Last Admin: 04/25/18 09:47 Dose: 5 mg Nitroglycerin (Nitrostat Sl) 0.4 mg SL Q5M PRN PRN Reason: CHEST PAIN Ondansetron HCl (Zofran Inj) 4 mg IV.PUSH Q6H PRN PRN Reason: NAUSEA Sodium Chloride (Ns Flush) 2 ml IV.FLUSH UNSCH PRN PRN Reason: FLUSH AFTER USING IV ACCESS Sodium Chloride (Ns Flush) 2 ml IV.FLUSH BID [facility] Last Admin: 04/25/18 09:48 Dose: 2 ml Sodium Chloride (Ns Flush) 2 ml IV.FLUSH PRN PRN PRN Reason: FLUSH AFTER USING IV ACCESS Allergies Allergy/AdvReac Type Severity Reaction Status Date / Time morphine Allergy Severe SWELLING Verified 04/25/18 03:38 Home Medications Medication Instructions Recorded Confirmed Type amlodipine 5 mg PO DAILY 04/25/18 04/25/18 History clonidine HCl 0.1 mg PO PRN PRN 04/25/18 04/25/18 History Physical Exam Vital signs: Vital Signs 04/25/18 03:35 04/25/18 04:05 04/25/18 04:41 Temperature 97.5 F L Pulse Rate 105 H 80 87 Respiratory Rate 20 18 Blood Pressure 186/89 H 157/90 H Pulse Oximetry 99 100 98 04/25/18 05:55 04/25/18 08:00 Temperature 98.2 F Pulse Rate 94 H 78 Respiratory Rate 14 16 Blood Pressure 129/88 144/87 H Pulse Oximetry 98 99 Intake & Output 04/24/18 04/25/18 04/25/18 18:59 06:59 18:59 Weight 58.967 kg 61 kg Other: Weight On Admission 61 kg Narrative: I am in agreement with the documentation with the single addition below: Cardiovascular evaluation reveals the PMI to be slightly displaced with a regular rhythm and a 1/6 systolic murmur best heard along the right sternal border radiating from the apex. Results 04/25/18 04:00 04/25/18 05:00 Cardiac Enzymes 04/25/18 04/25/18 04/25/18 Range/Units 05:00 06:20 09:33 AST 26 (15-37) U/L Troponin I Less than 0.02 L Less than 0.02 L Less than 0.02 L (0.02-0.05) ng/mL Coagulation 04/25/18 Range/Units 04:00 PT 10.0 (9.8-11.6) sec APTT 26.3 (23.4-31.7) sec CBC 04/25/18 Range/Units 04:00 WBC 6.0 (4.0-11.0) th/mm3 RBC 4.18 (4.00-5.30) mil/mm3 Hgb 13.4 (11.6-15.3) gm/dL Hct 39.5 (35.0-46.0) % Plt Count 233 (150-450) th/mm3 Neut # (Auto) 1.8 (1.8-7.7) th/mm3 Lymph # (Auto) 3.5 (1.0-4.8) th/mm3 [place] # (Auto) 0.5 (0.0-0.9) th/mm3 Eos # (Auto) 0.2 (0.0-0.4) th/mm3 Baso # (Auto) 0.0 (0.0-0.2) th/mm3 Comprehensive Metabolic Panel 04/25/18 Range/Units 05:00 Sodium 138 (136-145) meq/L Potassium 3.8 (3.5-5.1) meq/L Chloride 108 H (98-107) meq/L Carbon Dioxide 22.3 (21.0-32.0) meq/L BUN 11 (7-18) mg/dL Creatinine 0.56 (0.50-1.00) mg/dL Calcium 9.1 (8.5-10.1) mg/dL AST 26 (15-37) U/L ALT 31 (10-53) U/L Alkaline Phosphatase 63 (45-117) U/L Total Protein 8.2 (6.4-8.2) g/dL Albumin 3.6 (3.4-5.0) g/dL Intake and Output 04/24/18 04/25/18 04/25/18 22:59 06:59 14:59 Other: Weight 58.967 kg 61 kg Weight On Admission 61 kg Patient Weight 04/26/18 06:59 Weight 61 kg - Imaging and Cardiology Imaging: Impressions Chest X-Ray 04/25/18 03:50 CONCLUSION: Negative examination. Head CT 04/25/18 03:50 CONCLUSION: 1. Negative CT Head non contrast. .
[2018-04-25] MEDS ORDERED: Acetaminophen 325 MG Tablet PO PRN (11:46)
--- NOTE | 2018-04-25 11:48 | ECG ---
Date Performed: 04/25/2018 Time Performed: 06:31:57 PTAGE: 62 years EKG: Sinus rhythm POSSIBLE LEFT ATRIAL ENLARGEMENT NONSPECIFIC T-WAVE ABNORMALITY BORDERLINE ECG No significant change PREVIOUS TRACING : 04/25/2018 03.55 DOCTOR: Zohaib Castillo Interpretating Date/Time 04/25/2018 11:47:36
--- NOTE | 2018-04-25 11:49 | ECG ---
Date Performed: 04/25/2018 Time Performed: 03:55:00 PTAGE: 62 years EKG: Sinus rhythm POSSIBLE LEFT ATRIAL ENLARGEMENT NONSPECIFIC T-WAVE ABNORMALITY BORDERLINE ECG No significant change PREVIOUS TRACING : 07/12/2016 17.01 DOCTOR: Zohaib Castillo Interpretating Date/Time 04/25/2018 11:49:05
[2018-04-25] MEDS ORDERED: Regadenoson Inj 0.4 MG/5 ML Syringe IV.PUSH ONE (14:06)
--- NOTE | 2018-04-25 15:31 | NM ---
EXAM DATE: 04/25/2018 3:16 PM EST AGE/SEX: 62 years / Female INDICATIONS:Angina. . Substernal chest pain and pressure. CLINICAL DATA: This is the patient's initial encounter. Patient reports that signs and symptoms have been present for 2 days and indicates a pain score of 4/10. MEDICAL/SURGICAL HISTORY: Hypertension. Deep vein thrombosis, pulmonary embolism. Appendectomy . Hernia repair. [place] [facility] [place]. . DOSE: 8.1 mCi Tc 99m Myoview at rest 26.3 mCi [id number] at stress 0.4 mg Lexiscan STRESS SYMPTOMS: None. EJECTION FRACTION: >70 % TECHNIQUE: The patient underwent pharmacologic stress with infusion of prescribed dose. Continuous ECG tracing was monitored during stress. Gated SPECT imaging was performed after stress and conventi onal SPECT imaging was performed at rest. The examination was performed on a SPECT/CT scanner, both attenuation and non-corrected datasets were reviewed. FINDINGS: Distribution: The maximum perfused segment at stress is in the lateral wall. Perfusion Study: The pattern of perfusion at stress is within normal limits. There is minimal decre ased signal at the apical anterior wall on the stress images compared to the rest images. The differe nce is in the order of 10-20% which is likely within normal variability. Gated Study: There are intact wall motion and wall thickening without hypokinetic or dyskinetic segm ents. The ejection fraction is calculated at >70%. RISK CATEGORY: Low (<1% Annual Motality Rate) CONCLUSION: No definite areas of ischemia are seen. Electronically signed by: Jorge Fuentes MD 04/25/2018 3:29 PM EST
[2018-04-25] MEDS ORDERED: Ketorolac Inj 30 MG/ML (IVP) Vial IV.PUSH ONE (15:36)
--- NOTE | 2018-04-26 14:48 | ECG ---
Date Performed: 04/25/2018 Time Performed: 09:33:18 PTAGE: 62 years EKG: SINUS RHYTH ABNORMAL ECG PREVIOUS TRACING : 04/25/2018 06.31 Since previous tracing, no significant change noted DOCTOR: Harish Mercado Interpretating Date/Time 04/26/2018 14:46:47
--- NOTE | 2018-04-26 14:52 | TR ---
Date Performed: 04/25/2018 Time Performed: 14:04:25 DOCTOR: Harish Mercado DRUG LIST: CLINICAL HISTORY: REASON FOR TEST: REASON FOR ENDING: OBSERVATION: CONCLUSION: COMMENTS: Lexiscan stress test was performed under standard four minute protocol. Radionuclide was injected one minute prior to ending the test. No electrocardiographic abormalities were present t o suggest ischemia. Nuclear imaging and interpretation are pending.
== END 2018-04-25 16:08 | disposition home or self-care (01) ==
LOC: NEPE 03:33 → NEDA 03:33 → NEPHCDU 09:05
PROVIDERS: ADMIT Internal Medicine Cardiovascular Disease; ATTEND Internal Medicine Cardiovascular Disease
DX: Z82.49 Family history of ischemic heart disease and other diseases of the circulatory system; Z90.49 Acquired absence of other specified parts of digestive tract; Z86.711 Personal history of pulmonary embolism; E78.5 Hyperlipidemia, unspecified; I10 Essential (primary) hypertension; R07.89 Other chest pain; Z88.5 Allergy status to narcotic agent; R94.31 Abnormal electrocardiogram [ECG] [EKG]